=== PATIENT | male | born 1955 | race Caucasian/White ===

== ENCOUNTER 2023-08-28 03:32 | Day surgery (SDC) | payer OTHER, SELFPAY ==
[2023-07-30 14:57] VITALS: BMI 37.3
--- NOTE | 2023-08-26 09:13 | SUR.PREOP ---
Patient called regarding upcoming procedure. Reviewed preop instructions, appointment times, and procedure prep.
[2023-08-28 06:21] VITALS: BP 148/77; PULSE 81; RESP 18; TEMP 35.9; O2SAT 96
[2023-08-28] MEDS: LACTATED RINGERS 1,000 ML 150 ML IV CONT (06:29)
--- NOTE | 2023-08-28 07:27 | P.PNAN_ITS ---
Anes - Initial Pre Proc Eval Procedure: Operation Date: 08/28/23 07:30 Proposed Procedures p Screening Colonoscopy - Grant Castanon MD Date/Time: 08/28/23 07:27 Surgeon: Grant Castanon MD Pre Op Diagnosis: neoplasm screening Patient Data Age: 68 Gender: M Height: 1.78 m Weight: 118.5 kg Last Vital Signs Temp 96.6 F L 08/28/23 06:21 Pulse 81 08/28/23 06:21 Resp 18 08/28/23 06:21 BP 148/77 H 08/28/23 06:21 Pulse Ox 96 08/28/23 06:21 O2 Del Method Room Air 08/28/23 06:21 Allergies Allergy/AdvReac Type Severity Reaction Status Date / Time No Known Allergies Allergy Verified 08/28/23 06:19 Home Medications Medication Instructions Recorded Confirmed Type aspirin 81 mg tablet,delayed 81 mg PO DAILY 06/04/23 08/28/23 History release (Mark Low Dose Aspirin) atorvastatin 40 mg tablet 40 mg PO DAILY 06/04/23 08/28/23 History metoprolol tartrate 25 mg tablet 25 mg PO BID 06/04/23 08/28/23 History Patient hx anesthesia problems: none Family hx anesthesia problems: none Results Review: All pre-operative results and documents have been reviewed as part of the pre-operative evaluation. [facility] Family History Family History (Updated 06/04/23 @ 09:56 by Nany Anguiano MA) Mother Family history of liver disease Alcoholism Father Patient's father is , Onset Age: 58 Grandparent Diabetes mellitus Heart disease Social History Social History Years smoked: 18 Smoking status: Former smoker Alcohol intake: current Drinks per week: 1 Substance use type: does not use Anes - Eval Final PreProcedure Day of Procedure 08/28/23 07:27 Patient weight: obese Heart: regular rate and rhythm Lungs: clear to auscultation Airway: Mallampati scale class III Neurological: alert and oriented Last oral intake: >/= 8 hours ASA classification: III Emergent: no Anesthetic plan: proceed Anesthesia type and monitoring: general GIVS and standard monitoring Results Review: All pre-operative results and documents have been reviewed as part of the pre- operative evaluation. Informed Consent: The patient's anesthetic plan and its attendant risks and benefits were discussed with the patient/family/POA. Questions were solicited and answers provided to the satisfaction of the patient/family/POA.
--- NOTE | 2023-08-28 07:31 | PM.HPGS ---
History of Present Illness History of Present Illness Consent: Risks, benefits, and alternatives have been discussed and questions answered. Patient agrees to proceed with procedure. Chief complaint: neoplasm screening Narrative: Campbell Lemus is a 68 year old male here for first screening colonoscopy Review of Systems Constitutional: Constitutional: Denies headache(s) and Denies weakness Eyes: Eyes: Denies blurry vision ENT: Reports Normal hearing present, Denies headache(s) and Denies neck pain Cardiovascular: Cardiovascular: Denies chest pain and Denies dyspnea Respiratory: Respiratory: Denies dyspnea Gastrointestinal: Gastrointestinal: Reports no additional gastrointestinal complaints Genitourinary: Genitourinary: Denies dysuria Musculoskeletal: Musculoskeletal: Denies neck pain Integumentary/Breasts: Skin/Breast: Denies dry skin Neurologic: Reports Normal hearing present, Denies headache(s) and Denies weakness Psychiatric: Psychiatric: Denies anxiety Endocrine: Endocrine: Denies change in body appearance Hematologic/Lymphatic: Hematologic/Lymphatic: Denies easy bleeding Allergic/Immunologic: Allergic/Immunologic: Denies urticaria [facility] Past Medical History Medical History (Updated 08/28/23 @ 07:31 by Grant Castanon MD) Colon cancer screening Family History Family History (Updated 06/04/23 @ 09:56 by Nany Anguiano MA) Mother Family history of liver disease Alcoholism Father Patient's father is , Onset Age: 58 Grandparent Diabetes mellitus Heart disease Social History Social History Years smoked: 18 Smoking status: Former smoker Alcohol intake: current Drinks per week: 1 Substance use type: does not use Meds Home Medications and Allergies Home Medications Medication Instructions Recorded Confirmed Type aspirin 81 mg tablet,delayed 81 mg PO DAILY 06/04/23 08/28/23 History release (Mark Low Dose Aspirin) atorvastatin 40 mg tablet 40 mg PO DAILY 06/04/23 08/28/23 History metoprolol tartrate 25 mg tablet 25 mg PO BID 06/04/23 08/28/23 History Allergies Allergy/AdvReac Type Severity Reaction Status Date / Time No Known Allergies Allergy Verified 08/28/23 06:19 Vital Signs Vital Signs - 24 hr 08/28/23 06:21 Temperature 96.6 F L Pulse Rate 81 Respiratory Rate 18 Blood Pressure 148/77 H Pulse Oximetry 96 Oxygen Delivery Room Air Exam Const: General: comfortable and no acute distress HENMT: Face/Nose/Sinus: Normal nares present Eyes: General: appearance normal, both eyes and all related structures Neck: Neck: no JVD Resp: Auscultation: clear to auscultation bilaterally Cardio: Rate: regular rate Rhythm: regular rhythm GI: Inspection: non-distended GI Palp: Yes Soft to palpation Skin: General skin exam: normal color Neuro: General: gait normal Speech: normal speech Extrem: General: normal to inspection Psych: Mental Status: mental status grossly normal Assessment and Plan Assessment and plan (1) Colon cancer screening: Code(s): Z12.11 - Encounter for screening for malignant neoplasm of colon Status: Acute Assessment and Plan: colonoscopy
[2023-08-28 07:52] VITALS: BP 103/53; PULSE 73; RESP 19; O2SAT 97
[2023-08-28 08:02] VITALS: BP 116/62; PULSE 69; RESP 22; O2SAT 98
[2023-08-28 08:12] VITALS: BP 106/73; PULSE 64; RESP 17; O2SAT 98
== END 2023-08-28 08:22 | disposition home or self-care (01) ==
PROVIDERS: PCP Family Medicine; Visit Provider Internal Medicine Gastroenterology
PROC: 0DJD8ZZ Inspection of Lower Intestinal Tract, Via Natural or Artificial Opening Endoscopic (ICD-10-PCS; CPT 45378; principal; 2023-08-28 07:30)
DX: Z12.11 Encounter for screening for malignant neoplasm of colon (principal); K63.5 Polyp of colon; K64.8 Other hemorrhoids; Z79.82 Long term (current) use of aspirin; Z87.891 Personal history of nicotine dependence; E66.9 Obesity, unspecified; Z68.37 Body mass index [BMI] 37.0-37.9, adult
CPT/HCPCS: 45385; 88305; J2704; J7120